=== PATIENT | male | born 1990 | race Caucasian/White ===

== ENCOUNTER 2019-04-27 14:54 | Emergency (ER) | payer BC ==
[~2019-04-27] VITALS: Ht 180.3 cm; Wt 79.4 kg
[2019-04-27] MEDS ORDERED: ONDANSETRON 4 MG/2 ML VIAL IV ONE (15:00)
[2019-04-27] MEDS ORDERED: HYDROMORPHONE 1 MG/1 ML DISP.SYRIN IV ONE (15:00)
--- NOTE | 2019-04-27 15:00 | NUR ---
Dr. Ludwig at the bedside for MSE.
[2019-04-27] MEDS ORDERED: LURA20TA PO (15:01)
[2019-04-27] MEDS ORDERED: FLUO10TA PO (15:01)
[2019-04-27] MEDS ORDERED: HYDROMORPHONE 2 MG/1 ML DISP.SYRIN ONE (15:07)
[2019-04-27] MEDS ORDERED: ONDANSETRON 4 MG/2 ML VIAL ONE (15:07)
[2019-04-27] MEDS ORDERED: PROPOFOL 1,000 MG/100 ML BOTTLE IV ONE (15:15)
[2019-04-27] MEDS ORDERED: PROPOFOL 200 MG/20 ML BOTTLE ONE (15:23)
--- NOTE | 2019-04-27 15:30 | NUR ---
Conscious moderation sedation started. MD, RN, RT, radiologist, and all medical staff present at the bedside. (see "moderate sedation conscious" notes for more details)
--- NOTE | 2019-04-27 15:35 | NUR ---
Moderate sedation procedure complete. Pt awake and alert. Nad noted after completion of procedure. VSS wnl.
--- NOTE | 2019-04-27 16:40 | NUR ---
Patient discharged to home in stable conditon. Written and verbal after care instructions given. Patient verbalizes understanding of instructions.
[2019-04-27 16:46] VITALS: BP 136/76
== END 2019-04-27 16:40 | disposition home or self-care (01) ==
LOC: ER 14:54
DX: S43.084A Other dislocation of right shoulder joint, initial encounter (principal); Z88.1 Allergy status to other antibiotic agents; Z79.899 Other long term (current) drug therapy; X58.XXXA Exposure to other specified factors, initial encounter; Y93.89 Activity, other specified; Y92.89 Other specified places as the place of occurrence of the external cause; Y99.8 Other external cause status
CPT/HCPCS: 23650; 73020; 73030; 96374; 96375; 99152; 99285; J1170; J2405; A4663; G0500; J3490; J7030